=== PATIENT | male | born 1960 | race Caucasian/White ===

== ENCOUNTER → 2017-11-04 | Emergency (ER) | payer OTHER ==
[~2017-11-04] VITALS: Ht 167.6 cm; Wt 121.6 kg
[~2017-11-04] MED LIST: AVAPRO75 MG; COREG CR20 MG; JANUMET 50-5001 EACH; NORVASC5 MG
== END | disposition home or self-care (01) ==
LOC: ER 16:42
DX: S43.014A Anterior dislocation of right humerus, initial encounter (principal); W18.39XA Other fall on same level, initial encounter; Y93.89 Activity, other specified; Y92.89 Other specified places as the place of occurrence of the external cause; Y99.8 Other external cause status